=== PATIENT | male | born 1980 | race African-American/Black ===

== ENCOUNTER 2017-03-15 15:19 | Emergency (ER) | payer MEDICAID ==
[~2017-03-15] VITALS: Ht 177.8 cm; Wt 150.0 kg
[~2017-03-15 15:19] MED LIST: ALBUTEROL; HYDROCHLOROTHIAZIDE; LISINOPRIL
[2017-03-15] MEDS ORDERED: METO-296 PO (15:56)
[2017-03-15] MEDS ORDERED: POTA10TA15 PO (15:56)
[2017-03-15] MEDS ORDERED: PRAV40TA58 PO (15:56)
[2017-03-15 17:37] VITALS: BP 147/83
[2017-03-15] MEDS ORDERED: PREDNISONE 20MG TABLET PO ONE (17:45)
== END 2017-03-15 17:51 | disposition home or self-care (01) ==
LOC: ER 15:20
DX: L23.89 Allergic contact dermatitis due to other agents (principal); I11.0 Hypertensive heart disease with heart failure; I50.9 Heart failure, unspecified; E66.9 Obesity, unspecified; Z68.42 Body mass index [BMI] 45.0-49.9, adult; F17.210 Nicotine dependence, cigarettes, uncomplicated; Z71.6 Tobacco abuse counseling; F12.90 Cannabis use, unspecified, uncomplicated
CPT/HCPCS: 99283; J7512; Z7610

== ENCOUNTER 2025-05-09 05:49 | Inpatient (IN) | payer MEDICAID ==
[~2025-05-09] VITALS: Ht 177.8 cm; Wt 144.2 kg
[~2025-05-09 05:49] MED LIST changes: -ALBUTEROL; +APIX5TAB PO; +ATOR40TA70 MT; +COR6 PO; +DILT180C87 MT; +EMPA10TA PO; +FURO-151 PO; -HYDROCHLOROTHIAZIDE; -LISINOPRIL; +SPIR25TA PO
[2025-05-09 05:50] VITALS: O2SAT 98
[2025-05-09] MEDS: ASPIRIN 81MG TABLET PO ONE (06:46)
[2025-05-09] MEDS: FUROSEMIDE 40MG/4ML VIAL IV ONE (06:47)
[2025-05-09 06:51] LABS: BASOPHILS % 0.7 % (0.0-2.0); EOSINOPHILS % 0.9 % (0.0-5.0); HEMATOCRIT. 41.2 % (42.0-52.0); HEMOGLOBIN. 13.6 g/dL (14.0-18.0); LYMPHOCYTES % 10.2 % (20.0-50.0); MEAN PLATELET VOLUME 8.6 fl (7.4-10.4); MONOCYTES % 8.4 % (2.0-8.0); NEUTROPHILS % 79.8 % (40.0-76.0); PLATELET 141 x1000/uL (130-400); RED BLOOD CELL COUNT 4.62 mill/uL (4.7-6.1); RED CELL DISTRIBUTION WIDTH 14.6 % (11.6-14.6)
[2025-05-09 07:06] LABS: CREATININE 1.5 mg/dL (0.6-1.3); TROPONIN I HIGH SENSITIVITY 26 ng/L (3.0-53); UREA NITROGEN BLOOD 25 mg/dL (9-23)
[2025-05-09 07:08] LABS: ASPARTATE AMINOTRANSFERASE 20 IU/L (<34); BILIRUBIN DIRECT 1.1 mg/dL (<=3.0); BILIRUBIN TOTAL 2.5 mg/dL (0.1-1.0); PROTEIN TOTAL 7.5 g/dL (6.0-8.3)
[2025-05-09 10:24] VITALS: BP 172/125; PULSE 92; RESP 18; TEMP 35.9176
[2025-05-09] MEDS ORDERED: ACETAMINOPHEN 325MG TABLET PO PRN (11:15)
[2025-05-09] MEDS ORDERED: IPRATROPIUM/ALBUTEROL 0.5-3(2.5)MG/3ML NEB HHN PRN (11:15)
[2025-05-09] MEDS: HYDRALAZINE 20MG/ML VIAL IV PRN (11:55)
[2025-05-09] MEDS: CARVEDILOL 6.25 MG TABLET PO NR (11:55)
[2025-05-09 12:00] VITALS: BP 160/106; PULSE 98; RESP 18; TEMP 36.4; O2SAT 100
[2025-05-09 16:00] VITALS: BP 151/102; PULSE 92; RESP 20; TEMP 35.9; O2SAT 98
[2025-05-09 20:00] VITALS: BP 159/106; PULSE 84; RESP 16; TEMP 36.8; O2SAT 96
[2025-05-10] VITALS: BP 152/120; PULSE 94; RESP 19; TEMP 36.2; O2SAT 99
[2025-05-10 04:00] VITALS: BP 151/110; PULSE 79; RESP 18; TEMP 36.3; O2SAT 99
[2025-05-10 08:52] VITALS: BP 153/105; PULSE 86; RESP 18; TEMP 36.4; O2SAT 99
[2025-05-10] MEDS: PANTOPRAZOLE SODIUM 40 MG/VIAL IV SCH (09:35)
[2025-05-10] MEDS ORDERED: MULT-1318 PO (11:28)
[2025-05-10] MEDS ORDERED: ERGO1250 PO (11:28)
[2025-05-10] MEDS ORDERED: CHOL200059 PO (11:28)
[2025-05-10] MEDS ORDERED: ACETAMINOPHEN 325MG TABLET PO PRN (11:30)
[2025-05-10] MEDS ORDERED: ONDANSETRON HCL 4MG/2ML INJ IV PRN (11:30)
[2025-05-10 12:00] VITALS: BP 159/125; PULSE 87; RESP 18; TEMP 36.8; O2SAT 99
[2025-05-10] MEDS: FUROSEMIDE 40MG/4ML VIAL IVP SCH (14:40)
[2025-05-10] MEDS: CARVEDILOL 12.5MG TABLET PO SCH (14:41)
[2025-05-10 17:00] VITALS: BP 149/116; PULSE 93; RESP 18; TEMP 37.1; O2SAT 99
[2025-05-10 20:00] VITALS: BP 131/90; PULSE 74; RESP 18; TEMP 36.3; O2SAT 100
[2025-05-10] MEDS ORDERED: CARVEDILOL 6.25 MG TABLET PO SCH (21:00)
[2025-05-10] MEDS: APIXABAN 5 MG TABLET PO SCH (23:02)
[2025-05-11] VITALS (7 sets, daily range): BP systolic 133–165; BP diastolic 87–117; PULSE 86–108; RESP 16–18; TEMP 36.3–36.5; O2SAT 96–100
[2025-05-11 07:30] LABS: BASOPHILS % 0.6 % (0.0-2.0); EOSINOPHILS % 1.5 % (0.0-5.0); HEMATOCRIT. 41.7 % (42.0-52.0); HEMOGLOBIN. 13.8 g/dL (14.0-18.0); LYMPHOCYTES % 15.3 % (20.0-50.0); MEAN PLATELET VOLUME 8.7 fl (7.4-10.4); MONOCYTES % 10.2 % (2.0-8.0); NEUTROPHILS % 72.4 % (40.0-76.0); PLATELET 135 x1000/uL (130-400); RED BLOOD CELL COUNT 4.74 mill/uL (4.7-6.1); RED CELL DISTRIBUTION WIDTH 14.9 % (11.6-14.6)
[2025-05-11 07:56] LABS: CREATININE 1.5 mg/dL (0.6-1.3); UREA NITROGEN BLOOD 24 mg/dL (9-23)
[2025-05-11] MEDS ORDERED: DILTIAZEM HCL 180MG CAPSULE ER 24HR PO SCH (09:00)
[2025-05-11] MEDS ORDERED: FUROSEMIDE 40MG/4ML VIAL IVP SCH (09:00)
[2025-05-11] MEDS: PANTOPRAZOLE SODIUM 40 MG/VIAL IV SCH (09:00)
[2025-05-11] MEDS: MULTIVITAMINS,THER W-MINERALS TABLET PO SCH (09:45)
[2025-05-11] MEDS: ATORVASTATIN CALCIUM 40MG TABLET PO SCH (09:45)
[2025-05-11] MEDS: EMPAGLIFLOZIN 10MG TABLET PO SCH (09:45)
[2025-05-11] MEDS ORDERED: FURO-151 PO (12:33)
[2025-05-11] MEDS: HYDRALAZINE 20MG/ML VIAL IV SCH (15:25)
[2025-05-11] MEDS ORDERED: FAMO-135 MT (16:03)
[2025-05-11] MEDS ORDERED: LISI20TA31 MT (16:03)
== END 2025-05-11 18:20 | disposition home or self-care (01) | DRG 194 ==
LOC: ER 05:49 → EDBEDREQ 07:56 → 5WST 08:51 → EDBEDREQ 08:57 → EDBEDREQTM 08:57 → ENRESERV 09:12
PROVIDERS: ADMIT Internal Medicine; ATTEND Internal Medicine
DX: I11.0 Hypertensive heart disease with heart failure (principal); J96.01 Acute respiratory failure with hypoxia; N17.0 Acute kidney failure with tubular necrosis; I50.23 Acute on chronic systolic (congestive) heart failure; E66.01 Morbid (severe) obesity due to excess calories; J45.909 Unspecified asthma, uncomplicated; E78.5 Hyperlipidemia, unspecified; I48.0 Paroxysmal atrial fibrillation; F12.90 Cannabis use, unspecified, uncomplicated; F17.200 Nicotine dependence, unspecified, uncomplicated; Z79.01 Long term (current) use of anticoagulants; Z79.899 Other long term (current) drug therapy; Z68.42 Body mass index [BMI] 45.0-49.9, adult
CPT/HCPCS: 36415; 71045; 80048; 80076; 83880; 84484; 85025; 93005; 93308; 96374; 99285; A4606; J0360; J1938; J2470